=== PATIENT | female | born 1950 | race African-American/Black ===

== ENCOUNTER 2017-08-16 08:37 | Emergency (ER) | payer MEDICARE, MEDICAID ==
--- NOTE | 2017-08-16 10:11 | ER Document Report ---
ED Respiratory Problem - General Chief Complaint: Breathing Difficulty Stated Complaint: BLOOD PRESSURE PROBLEMS Time Seen by Provider: 08/16/17 09:35 Information source: Patient Notes: Patient is a 66-year-old female with a history of dialysis who presents today with some shortness of breath. Patient is traveling here from [place] yesterday. Patient states she had a dialysis session yesterday but they did not take as much fluid off secondary to "my blood pressure being a little low". Patient denies any cough, runny nose, congestion, chest pain, or leg swelling. Patient believes that this is all attributed to her inability to use her portable oxygen canister. She states she normally is on 2 L baseline. She has a portable travel oxygen canister but is not sure how to use it. She is here for assistance. TRAVEL OUTSIDE OF THE [place] IN LAST 30 DAYS: No - HPI Patient complains to provider of: Short of breath Onset: Other - See above Duration: Better - Now on oxygen here Quality of pain: No pain Severity: Mild Pain Level: Denies Context: Other - See above Short of Breath: Mild Cough: Nonproductive Sputum amount: None Associated symptoms: Other - See above Similar symptoms previously: Yes Recently seen / treated by doctor: Yes - Related Data Allergies/Adverse Reactions: No Known Allergies Allergy (Verified 08/16/17 08:41) Past Medical History - General Information source: Patient - Social History Smoking Status: Unknown if Ever Smoked Cigarette use (# per day): No Chew tobacco use (# tins/day): No Smoking Education Provided: No Frequency of alcohol use: None Drug Abuse: None Family History: Reviewed & Not Pertinent Renal/ Medical History: Denies: Hx Peritoneal Dialysis - hemo Review of Systems - Review of Systems Constitutional: denies: Fever EENT: denies: Eye discharge, Nose discharge Respiratory: denies: Short of breath Gastrointestinal: denies: Vomiting Genitourinary: denies: Dysuria Musculoskeletal: denies: Leg swelling Skin: Other - no hives. denies: Rash Neurological/Psychological: Other - no slurred speech -: Yes All other systems reviewed and negative Physical Exam - Vital signs Vitals: Temp Pulse Resp BP 98.0 F 84 21 H 125/76 08/16/17 08:41 08/16/17 08:41 08/16/17 08:41 08/16/17 08:41 Notes: Reviewed vital signs and nursing note as charted by RN. CONSTITUTIONAL: Alert and oriented and responds appropriately to questions. Well -appearing; well-nourished HEAD: Normocephalic; atraumatic EYES: PERRL; Conjunctivae clear, sclerae non-icteric ENT: Normal nose; no rhinorrhea; moist mucous membranes; pharynx without lesions noted NECK: No cervical lymphadenopathy, no masses CARD: Regular rate and rhythm; no murmurs, no clicks, no rubs, no gallops; symmetric distal pulses RESP: Normal chest excursion without splinting or tachypnea; breath sounds clear and equal bilaterally; no wheezes or rhonchi BACK: The back appears normal and is non-tender to palpation EXT: Normal ROM in all joints; non-tender to palpation; no edema SKIN: No acute lesions noted NEURO: Moves all extremities equally; Motor and sensory function intact PSYCH: The patient's mood and manner are appropriate. Grooming and personal hygiene are appropriate. Course - Re-evaluation Re-evalutation: 08/16/17 10:11 Given the history and physical examination we have called respiratory therapy to help assist the patient in walking her portable oxygen tank. Given the lack of any runny nose, congestion, coughing, chest pain, back pain, or extremity edema, completing dialysis yesterday, with a blood pressure currently of 99/70 with a heart rate of 75, I do not believe the patient requires an EKG or laboratory work at this time. We will attempt to assist the patient with a portable oxygen tank. For safety purposes I will perform an x-ray of the chest. If the x-ray of the chest is unremarkable, the patient continues to feel excellent on her baseline oxygen, I believe it is reasonable to discharge the patient home with follow-up when she returns to [place] after her visit with her daughter. 08/16/17 10:19 EKG shows a heart of 75, normal sinus rhythm, left posterior fascicular block; no obvious ST elevation or depression. Flattening T waves in leads V3 through V6 08/16/17 10:53 X-ray shows some cardiomegaly with some mild interstitial edema. No obvious effusions present. Respiratory therapy has provided instructions for portable oxygen usage. Patient still denies any pain or shortness of breath. Vital signs are stable. Patient and daughter are very comfortable going home at this time. Strict return precautions have been explained. - Vital Signs Vital signs: Temp Pulse Resp BP Pulse Ox 98.0 F 84 17 125/76 92 08/16/17 08:41 08/16/17 08:41 08/16/17 09:13 08/16/17 08:41 08/16/17 09:13 Discharge - Discharge Clinical Impression: Shortness of breath Condition: Good Disposition: HOME, SELF-CARE Additional Instructions: Come back immediately with any return of shortness of breath, any fevers, chest pain, leg swelling, or any other acute problems. Please follow-up with your doctor as we have discussed.
--- NOTE | 2017-08-16 10:35 | RADIOLOGY REPORT (SQ) ---
EXAM DESCRIPTION: CHEST PA/LAT COMPLETED DATE/TIME: 08/16/2017 10:20 am REASON FOR STUDY: MP; sob; dialysis. COMPARISON: None. EXAM PARAMETERS: NUMBER OF VIEWS: two views TECHNIQUE: Digital Frontal and Lateral radiographic views of the chest acquired. RADIATION DOSE: NA LIMITATIONS: none FINDINGS: LUNGS AND PLEURA: Few Patrick lines at both bases likely interstitial edema. Bandlike atel ectasis in the right middle lobe. No dense consolidation worrisome for pneumonia. No pleural effusions or pneumothorax. MEDIASTINUM AND HILAR STRUCTURES: No masses or contour abnormalities. HEART AND VASCULAR STRUCTURES: Moderate cardiomegaly BONES: Osteoporotic. HARDWARE: None in the chest. OTHER: Soft tissue density in the left upper arm on the frontal film may be part of a dialysis access graft IMPRESSION: Cardiomegaly Mild interstitial edema Right middle lobe atelectasis. TECHNICAL DOCUMENTATION: JOB ID: [id number] [employer]- All Rights Reserved
--- NOTE | 2017-08-16 11:00 | EKG REPORT ---
SEVERITY:- ABNORMAL ECG - SINUS RHYTHM LEFT POSTERIOR FASCICULAR BLOCK NONSPECIFIC T ABNORMALITIES, ADDIS LATERAL LEADS : Confirmed by: Chago Gallardo MD 16-Aug-2017 10:59:44
[2017-08-16 11:05] VITALS: BP 97/71
== END 2017-08-16 11:03 | disposition home or self-care (01) ==
LOC: ER 08:37
DX: R06.02 Shortness of breath (principal); Z99.81 Dependence on supplemental oxygen; I44.5 Left posterior fascicular block; I51.7 Cardiomegaly; Z99.2 Dependence on renal dialysis
CPT/HCPCS: 71020; 93005; 93010; 99285